=== PATIENT | female | born 1960 | race Caucasian/White ===

== ENCOUNTER → 2022-02-19 | Outpatient (CLI) | payer MEDICARE ==
[2022-02-19 12:56] LABS: BASO # 0.07 K/mm3 (0.02-0.10); EOS # 0.07 K/mm3 (0.04-0.40); EOS % 0.6 % (1.0-5.0); HEMATOCRIT 48.2 % (37.0-47.0); HEMOGLOBIN 15.9 g/dL (12.5-16.0); LYMPH# 3.25 K/mm3 (1.50-4.00); MEAN CELL VOLUME 97 fl (78-100); MEAN CORPUSCULAR HEMOGLOBIN 32 pg (27-31); MEAN CORPUSCULAR HGB CONC 33 g/dL (33-37); MEAN PLATELET VOLUME 9.6 fl (7.4-10.4); MONO # 1.07 K/mm3 (0.20-0.80); PLATELET COUNT 260 K/mm3 (130-400); RED BLOOD COUNT 4.99 M/mm3 (4.10-5.30); RED CELL DISTRIBUTION WIDTH 13.1 % (11.5-14.5); WHITE BLOOD COUNT 11.3 K/mm3 (4.8-10.8)
[2022-02-19 13:01] LABS: ALBUMIN 3.8 g/dL (3.4-4.8); POTASSIUM 3.3 mmol/L (3.5-5.1)
[2022-02-19 13:02] LABS: CALCIUM 9.8 mg/dL (8.3-10.5)
[2022-02-19 13:03] LABS: TOTAL PROTEIN 6.9 g/dL (6.2-8.1)
[2022-02-19 13:05] LABS: TOTAL BILIRUBIN 0.9 mg/dL (0.2-1.2)
== END ==
LOC: RAD 10:50
PROVIDERS: Nurse Practitioner Primary Care
DX: J18.9 Pneumonia, unspecified organism (principal)

== ENCOUNTER → 2022-06-21 | Outpatient (CLI) | payer MEDICARE | LOC: RAD 06-20 18:19 | DX: M21.952 Unspecified acquired deformity of left thigh (principal); R60.9 Edema, unspecified; M54.42 Lumbago with sciatica, left side ==

== ENCOUNTER → 2022-12-07 | Outpatient (CLI) | payer MEDICARE, MEDICAID | LOC: RAD 14:00 | DX: S00.93XA Contusion of unspecified part of head, initial encounter (principal); M19.012 Primary osteoarthritis, left shoulder; X58.XXXA Exposure to other specified factors, initial encounter ==